=== PATIENT | male | born 1940 | race Caucasian/White ===

== ENCOUNTER → 2017-04-08 | Outpatient (CLI) | payer MEDICARE, MEDICAID ==
[2017-04-08 09:35] LABS: BLOOD UREA NITROGEN 29 MG/DL (7-18); BUN/CREATININE RATIO 33; CREATININE SERUM 0.89 MG/DL (0.60-1.30); GFR ESTIMATED > 60
--- NOTE | 2017-04-08 15:40 | Diagnostic Imaging Report ---
EXAMINATION: CT angiogram of the abdomen and pelvis performed with intravenous contrast. Coronal and sagittal MIP technique reconstructions are performed. INDICATION: History of abdominal aortic aneurysm. COMPARISON: No prior studies are available for comparison. FINDINGS: There is an infrarenal abdominal aortic aneurysm measuring up to 5.5 cm in caliber. There is an endograft repair seen with bifurcating aortic limbs noted. The endograft is patent. The landing zone of the iliac limbs are within the distal aspect of the common iliac artery on both sides. The common iliac arteries are also aneurysmal up to 1.9 cm on the left and 1.6 cm on the right side. There is no contrast leakage seen into the aneurysm sac to suggest an endoleak. The internal iliac arteries are patent. On the left side, there is an aneurysm involving the anterior division of the left internal iliac artery up to 9 mm in caliber. The external iliac arteries demonstrate diffuse mild disease with multifocal calcified plaque bilaterally. No paraaortic significantly enlarged lymph node seen. The lung bases demonstrate minimal atelectasis. There is ectasia of the descending thoracic aortic segment. The celiac trunk and the SMA are patent. The left renal artery demonstrates suggestion of a proximal stent and is patent. The right renal artery demonstrates suggestion of an ostial stenosis. This appears to be a high-grade stenosis however the uncovered portion of the stent graft extending above the renal arteries prevent accurate evaluation due to artifacts. The JONATHAN appears to be occluded. The liver, the gallbladder, the spleen, the adrenal glands, and the pancreas appear unremarkable. The kidneys have symmetric enhancement and contrast excretion. There is no hydronephrosis. There are renal cystic lesions that appear simple up to 5.5 cm in the right kidney with no solid mass identified. Calcifications in the renal bernadette seen on both sides appear to be vascular with no obvious stones. There is moderate to large amounts of fecal material seen in the colon and in the rectum compatible with constipation without bowel obstruction. No significant free fluid or fluid collection in the abdomen or pelvis seen. There is evidence of prior anterior and posterior fusion spine surgery involving L3-S1 levels. IMPRESSION: 1. Infrarenal AAA measuring 5.5 cm in caliber, post endovascular repair with an aortoiliac bifurcating graft that is patent with no evidence of endoleak. 2. 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 3. Prominent amount of fecal material in the colon and rectum is suggestive of constipation. Dictated by: Dictated on workstation # [id number]
== END ==
LOC: RAD 08:36
DX: I71.4 Abdominal aortic aneurysm, without rupture (principal); I72.3 Aneurysm of iliac artery; K59.00 Constipation, unspecified; Z95.828 Presence of other vascular implants and grafts
CPT/HCPCS: 36415; 74174; 82565; 84520

== ENCOUNTER → 2018-04-21 | Outpatient (CLI) | payer MEDICARE, MEDICAID ==
[~2018-04-21] MED LIST: CATHETER FLUSH 10 ML SYR IV PRN; IOHEXOL 350 MG/ML 150 ML (OMNIPAQUE 350) VIAL IV ONE; NS 250 ML (IVPB) BAG IV ONE
[2018-04-21 08:56] LABS: CREATININE SERUM 1.3 MG/DL (0.60-1.30)
--- NOTE | 2018-04-21 11:47 | Diagnostic Imaging Report ---
Indication: Abdominal aortic aneurysm, followup. Pre- and post-intravenous contrast axial imaging through the abdomen and pelvis was performed utilizing the CT angiography protocol. Multiplanar 3-D and MIP reformations were also performed. Comparison is made with prior CT angiogram from 04/08/2017. The lung bases are clear. The liver and gallbladder are unremarkable. The pancreas and spleen are unremarkable. No adrenal mass is seen. A right renal cyst measured approximately 5.8 cm compared with 5.4 cm. Infrarenal abdominal aortic aneurysm containing aortic stent graft is again noted. An excluded aneurysm sac dimension is approximately 5.9 cm AP x 6.4 cm transverse compared with 5.3 cm AP x 6.2 cm transverse on prior exam. Both limbs of the stent graft appear to be patent. No perianeurysmal fluid collection is seen. No definite evidence of endoleak is detected. Bowel loops are normal caliber. There is a large amount stool in the rectum, sigmoid and descending colon. There is no ascites. Bladder is unremarkable. Postsurgical changes in the lower lumbar spine are noted. Impression: Infrarenal abdominal aortic aneurysm treated with aortic stent graft. The excluded aneurysm sac dimensions are measuring slightly larger on today's study when compared with the exam one year earlier. No definite perianeurysmal fluid collection is seen to suggest leakage. No definite evidence of endoleak is identified. The remainder of the study appears to be stable when compared to prior exam. Dictated by: Dictated on workstation # [id number]
== END ==
LOC: RAD 08:20
PROVIDERS: ATTEND Surgery Vascular Surgery
DX: I71.4 Abdominal aortic aneurysm, without rupture (principal); Z98.890 Other specified postprocedural states
CPT/HCPCS: 36415; 74174; 82565; 84520